=== PATIENT | male | born 1970 | race Caucasian/White ===

== ENCOUNTER 2022-07-04 09:04 | Outpatient (CLI) | payer OTHER, SELFPAY ==
[2022-07-05 23:21] LABS: Prostate Specific Antigen Free 0.3 ng/mL; Prostate Specific Antigen%Free 15 %
== END 2022-07-04 09:05 | disposition home or self-care (01) ==
PROVIDERS: PCP Family Medicine; Visit Provider Family Medicine
DX: Z00.00 Encounter for general adult medical examination without abnormal findings (principal); D70.9 Neutropenia, unspecified; E78.00 Pure hypercholesterolemia, unspecified
CPT/HCPCS: 82728; 84153; 84154

== ENCOUNTER 2023-05-11 08:09 | Outpatient (CLI) | payer OTHER, SELFPAY | END 2023-05-11 08:10 | disposition home or self-care (01) | LOC: NFLDREF 05-13 07:18 | PROVIDERS: PCP Family Medicine; Referring Provider Family Medicine; Visit Provider Family Medicine | DX: D70.9 Neutropenia, unspecified (principal); E78.00 Pure hypercholesterolemia, unspecified; R53.83 Other fatigue | CPT/HCPCS: 80053; 80061; 83525; 84403; 84443; 86141 ==

== ENCOUNTER 2023-08-21 08:18 | Outpatient (CLI) | payer OTHER, SELFPAY | END 2023-08-21 08:19 | disposition home or self-care (01) | LOC: NFLDREF 08-26 12:14 | PROVIDERS: PCP Family Medicine; Referring Provider Family Medicine; Visit Provider Family Medicine | DX: E78.00 Pure hypercholesterolemia, unspecified (principal); G47.00 Insomnia, unspecified | CPT/HCPCS: 80061; 82306; 86141 ==

== ENCOUNTER 2023-12-01 15:45 | Outpatient (RCR) | payer OTHER, SELFPAY ==
--- NOTE | 2023-11-09 12:00 | OT.OPOE ---
OT Outpatient Ortho Eval OT Outpatient Ortho Eval* Start: 11/09/23 07:32 Freq: Status: Active Protocol: Document 11/09/23 07:33 MAXIMO (Rec: 11/09/23 11:23 MAXIMO [email or web address]) E-signed By Ely Madrigal, OTR/L, CLT OT OP Ortho Eval Details Complexity Complexity Low Insurance Information Insurance Information [facility] Out[facility] History/Precautions Current Condition/Medical Diagnosis Referring Provider Dr. 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 Lesion of the Ulnar Nerve, R upper limb (dominant UE) Treatment Diagnosis Paresthesia of Skin R20.2 Pain in R elbow M25.521 Date of Onset Onset was about 3 months ago ( August 2023) Other Precautions None Other Conditions Prediabetes (Acute) R73.03 - Prediabetes (ICD-10) Insomnia (Acute) G47.00 - Insomnia, unspecified Neutropenia (Acute) D70.9 - Neutropenia, unspecified (ICD-10) Hypercholesterolemia (Acute) E78.00 - Pure hypercholesterolemia, unspecified (ICD-10) Headache (Acute) R51.9 - Headache, unspecified (ICD-10) Medical/Functional History Medical History Reviewed Yes Prior Level of Function/Mobility Indep with self 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 Social History Employment Status [employer] Employed Current Occupation [employer], desk job in an office Other Critical Job Demands using the computer, typing Fitness Patient is very fit, works out on a regular basis Ortho Subjective Subjective Subjective This is a 53 year old, R hand dominant male patient who first presented to Urgent Care on 09/20, that time diagnosed with carpal tunnel syndrome and advise a volar splint and follow-up if concerns persist. With no change in his symptoms, patient made an apt with his PCP and described symptoms or what he describes as a cold sensation involving his 3rd 4th and 5th digits, does seem to be on occasion exacerbated by typing, he is concerned about possible vascular cause, does sometimes have his associated numbness and tingling to these fingers, does not really having involvement of the thumb or the index finger which are typically associated with carpal tunnel, has not had improvement with recommendations made per the urgent care staff. No change in usual activity, reports using the same equipment/same work environment and desk set up for >1 year. He does spend a lot of time typing with his elbow flexed at 90?, he does not have associated neck pain, he does have a history of a spur in his R shoulder joint but denies associated shoulder pain with the symptoms. No prior history of R shoulder, elbow or wrist trauma/serious injuries. Patient reports he is pre-diabetes and eats a clean diet, mostly proteins and vegetables, low carb. Pain Assessment Pain Pain Yes Pain Comments 2-/10 at the R elbow (not always medial, sometimes on the lateral side) Goniometric Comments Goniometric Comments Goniometric Comments Neck has full range of motion forward and backwards (pain free with no strain) but limited range of motion with lateral movements (ear down to the shoulder). Upper traps are highly active. Bilateral (R vs. L) Shoulders-AROM is WNL Elbows- AROM is WNL Wrists- AROM is WNL Hand Pinch/Driller Brake Lining Strength Hand Pinch/Driller Brake Lining Strength Hand Pinch/Driller Brake Lining Strength Left Hand,Right Hand Left Hand Driller Brake Lining Strength Position 1 in Elbow 120 Flexion (lbs) Driller Brake Lining Strength Position 2 in Elbow 110 Extension (lbs) Lateral Pinch Strength (lbs) 29 Three Point Pinch (lbs) 22 Tip Pinch Strength (lbs) 20 Right Hand Driller Brake Lining Strength Position 1 in Elbow 120 Flexion (lbs) Driller Brake Lining Strength Position 2 in Elbow 130 Extension (lbs) Lateral Pinch Strength (lbs) 28 Three Point Pinch (lbs) 20 Tip Pinch Strength (lbs) 20 OT Objective Data Skin/Wounds/Edema Comments No swelling around the R elbow Sensation Sensation Assessment Summary Comments Strong pulse and rapid capillary refill. Skin coloring is normal, fingertips are cool to the touch, but this is bilaterally and present on all fingertips . OT Problems Problems Problems Pain,Sensory Sensitivity, Lifting,Gripping Other Problems Writing,Computer,Sleeping Patient Potential Good Assessment Assessment Assessment This is a 53 year old, R hand dominant male patient who first presented to Urgent Care on 09/20, that time diagnosed with carpal tunnel syndrome and advise a volar splint and follow-up if concerns persist. With no change in his symptoms, patient made an apt with his PCP and described symptoms or what he describes as a cold sensation involving his 3rd 4th and 5th digits, does seem to be on occasion exacerbated by typing, he is concerned about possible vascular cause, does sometimes have his associated numbness and tingling to these fingers, does not really having involvement of the thumb or the index finger which are typically associated with carpal tunnel, has not had improvement with recommendations made per the urgent care staff. No change in usual activity, reports using the same equipment/same work environment and desk set up for >1 year. He does spend a lot of time typing with his elbow flexed at 90?, he does not have associated neck pain, he does have a history of a spur in his R shoulder joint but denies associated shoulder pain with the symptoms. No prior history of R shoulder, elbow or wrist trauma/serious injuries. Patient reports he is pre-diabetes and eats a clean diet, mostly proteins and vegetables, low carb. AROM, fine motor/coordination and Strength do not show signs of impairment. Patient's chief complaint is the numbness and tingling he is experiencing in the R hand ( sensory symptoms). Patient has not had imaging for this condition (no MRI/CT or EMG testing). PLAN: treat pain symptoms with the use of modalities as indicated, manual therapy, development of an individualized HEP, patient education on the progression of treatment and activity modifications while healing. Patient was agreeable to this POC. Occupational Therapy Treatment Plan - OP Potential Rehabilitation Potential Good Barriers Barriers to goal attainment Pre-Diabetes Patient has not had imaging for this condition (no MRI/CT or EMG testing). Set Goals Goals Set with Patient Yes Goals Goals 1. Patient will verbalize 3 activity modifications to decrease abusive/overloading of the muscles, joints & tendons. 2. Through activity participation in skilled therapy sessions, and consistency in performing a customized HEP, patient will improve capacity of tendons and muscles to manage load in order to have less pain with ADLs, work, leisure activities and IADLs. 3. Through use of a soft elbow brace for the R (dominant) UE , patient will report sleeping >4 hour durations w/o waking up with tingling and numbness in R digits in order to have improved sleep quality. 4. Patient will be Indep with an individualized, comprehensive HEP with participation >15 mins per day 5 days per week. Target Date 8 weeks Treatment Plan Treatment Plan Evaluation,Iontophoresis,Joint Mobilization,Manual Therapy, Ultrasound,Therapeutic Exercise,Self Care/Home Management,Education Expected Frequency 1-2x Week Expected Duration 8-10 Weeks Home Program Home Program Home Program Initiated Home Program Specifics For the Sensory Symptoms recommending Ulnar nerve glides and nerve flossing. Access Code: [email or web address] URL: [email or web address] Date: 11/09/2023 Prepared by: Ely Madrigal Exercises - Standing Ulnar Nerve [place] - 1 x daily - 7 x weekly - 3 sets - 10 reps - Ulnar nerve towel sliders - 1 x daily - 7 x weekly - 3 sets - 10 reps - Ulnar Nerve Butterfly - 1 x daily - 7 x weekly - 3 sets - 10 reps - Ulnar Nerve Flossing - 1 x daily - 7 x weekly - 3 sets - 10 reps - Ulnar Nerve Flossing - 1 x daily - 7 x weekly - 3 sets - 10 reps - Ulnar Nerve Flossing - 1 x daily - 7 x weekly - 3 sets - 10 reps For the lateral or medial elbow pain recommended ice cup massages after activity. Ice massage is a simple way to help ease an injury or other condition. Ice massage can help decrease pain, swelling, inflammation, or muscle spasms from a new or old injury. First, make the ice cup: Fill a paper or styrofoam cup with water so it is [address] Put the cup of water into the freezer. Once the water is completely frozen, remove the cup from the freezer. You are now ready to give yourself an ice massage. Begin sitting with a towel underneath the area you will be icing. The towel will absorb any water that melts as you are icing. Tear off the top 2/3 of the frozen cup to expose the ice. Using the bottom of the cup as a handle, apply the ice to the injured area. Use a circular or up and down pattern. Keep your strokes small, concentrated, and continuous. Make sure not to hold the ice in one place to avoid irritating your skin. Continue icing until you have felt the four stages of cold progression: 1. Cold, 2. Burning, 3. Aching,4. Numb One way to remember this progression is with the acronym CBAN. Certification Certification Statement I Certify That: Therapy Services Provided, Therapy Plan Established, Therapy Plan Reviewed Certification Information Clinic ID # [id number] Initial Certification Date 11/09/23 Recertification Due Date 02/07/24 Provider Signature Required Yes Provider Signature Shows Agreement With POC & Medical Necessity Physician NPI Number Write NPI# Here Physician Comment/Change Comment or Changes Physician Signature & Date Requested Please Sign/Date Here
== END 2024-03-30 23:59 | disposition home or self-care (01) ==
PROVIDERS: PCP Family Medicine; Visit Provider Family Medicine
DX: G56.21 Lesion of ulnar nerve, right upper limb (principal); R20.2 Paresthesia of skin; M25.521 Pain in right elbow; Z51.89 Encounter for other specified aftercare
CPT/HCPCS: 97035; 97140; 97165

== ENCOUNTER 2024-07-19 07:58 | Outpatient (CLI) | payer OTHER, SELFPAY | END 2024-07-19 07:59 | disposition home or self-care (01) | LOC: NFLDREF 07-23 01:35 | PROVIDERS: PCP Family Medicine; Referring Provider Family Medicine; Visit Provider Family Medicine | DX: E78.00 Pure hypercholesterolemia, unspecified (principal); R73.03 Prediabetes; I25.10 Atherosclerotic heart disease of native coronary artery without angina pectoris; R20.9 Unspecified disturbances of skin sensation; Z12.5 Encounter for screening for malignant neoplasm of prostate | CPT/HCPCS: 80053; 80061; 82607; 84270; 84402; 84403; 84443; 86140; G0103 ==

== ENCOUNTER 2024-10-28 08:45 | Outpatient (CLI) | payer OTHER, SELFPAY | END 2024-10-28 08:46 | disposition home or self-care (01) | LOC: NFLDREF 11-03 11:21 | PROVIDERS: PCP Family Medicine; Referring Provider Family Medicine; Visit Provider Family Medicine | DX: N40.0 Benign prostatic hyperplasia without lower urinary tract symptoms (principal); I25.10 Atherosclerotic heart disease of native coronary artery without angina pectoris; Z12.5 Encounter for screening for malignant neoplasm of prostate | CPT/HCPCS: 84153; 84154; 86141 ==

== ENCOUNTER 2025-03-30 09:54 | Outpatient (CLI) | payer OTHER, SELFPAY | END 2025-03-30 09:55 | disposition home or self-care (01) | PROVIDERS: PCP Family Medicine; Visit Provider Family Medicine | DX: D70.9 Neutropenia, unspecified (principal); G62.9 Polyneuropathy, unspecified; R73.03 Prediabetes | CPT/HCPCS: 80076; 83525; 84439; 84443; 84481; 86618 ==